=== PATIENT | female | born 1995 | race Caucasian/White ===

== ENCOUNTER 2025-02-08 13:08 | Emergency (ER) | payer SELFPAY ==
[2025-02-08] MEDS ORDERED: Sulfameth/Trimethoprim DS 800-160mg TAB ONE (13:23)
== END 2025-02-08 13:26 | disposition home or self-care (01) ==
LOC: MADERS 13:08
DX: L02.411 Cutaneous abscess of right axilla (principal)
CPT/HCPCS: 99283